=== PATIENT | male | born 1960 | race Hispanic/Latino ===

== ENCOUNTER 2018-05-05 16:32 | Inpatient (IN) | payer MEDICAID ==
[2018-05-05 16:49] VITALS: BMI 23.7
--- NOTE | 2018-05-05 17:10 | ED PDOC ---
Arrival/HPI - General Time Seen by Provider: 05/05/18 16:49 Historian: Patient - History of Present Illness Narrative History of Present Illness (Text): 05/05/18 17:09 58 y/o male, no pmh, nkda, presents to the Emergency Department complaining of depression for half a year and suicidal thoughts for past few days. Patient informs chronic alcohol abuse but reports he stopped drinking for the past 1 month which he is not having any signs of tremors or withdrawals. Patient states he has worsening depression to the point of developing suicidal thoughts prompting him to present to the Emergency Department for evaluation. Patient denies any homicidal ideation. Patient denies any fever, chills, nausea, vomiting, chest pain, shortness of breath, auditory or visual hallucinations or any other complaints. Time/Duration: < week Symptom Onset: Gradual Symptom Course: Unchanged Activities at Onset: Light Context: Home Past Medical History - Provider Review Nursing Documentation Reviewed: Yes - Infectious Disease Hx of Infectious Diseases: None - Cardiac Hx Cardiac Disorders: Yes Hx Hypertension: Yes - Pulmonary Hx Respiratory Disorders: No - Neurological Hx Neurological Disorder: No - HEENT Hx HEENT Disorder: No - Renal Hx Renal Disorder: No - Endocrine/Metabolic Hx Endocrine Disorders: No - Hematological/Oncological Hx Blood Disorders: No - Integumentary Hx Dermatological Disorder: No - Musculoskeletal/Rheumatological Hx Musculoskeletal Disorders: No - Gastrointestinal Hx Gastrointestinal Disorders: No - Genitourinary/Gynecological Hx Genitourinary Disorders: No - Psychiatric Hx Psychophysiologic Disorder: Yes Hx Depression: Yes Hx Substance Use: No Family/Social History - Physician Review Nursing Documentation Reviewed: Yes Family/Social History: No Known Family HX Smoking Status: Never Smoked Hx Alcohol Use: No (Last drink 46 days ago) Hx Substance Use: No Allergies/Home Meds Allergies/Adverse Reactions: Allergies No Known Allergies Allergy (Verified 05/05/18 22:15) Home Medications: Home Meds Medication Instructions Recorded Confirmed Unobtainable 05/05/18 05/05/18 Review of Systems - Physician Review All systems were reviewed & negative as marked: Yes - Review of Systems Constitutional: absent: Fevers Eyes: absent: Vision Changes Respiratory: absent: SOB Cardiovascular: absent: Chest Pain Gastrointestinal: absent: Nausea, Vomiting Musculoskeletal: absent: Arthralgias, Back Pain Skin: absent: Rash, Pruritis Neurological: absent: Headache, Dizziness Psychiatric: Depression, Suicidal Ideation Physical Exam Vital Signs Reviewed: Yes Vital Signs Temp Pulse Resp BP Pulse Ox 05/05/18 16:49 98.0 F 75 17 106/77 97 Temperature: Afebrile Blood Pressure: Normal Pulse: Regular Respiratory Rate: Normal Appearance: Positive for: Well-Appearing, Non-Toxic, Comfortable Pain Distress: None Mental Status: Positive for: Alert and Oriented X 3 - Systems Exam Head: Present: Atraumatic, Normocephalic Pupils: Present: PERRL Extroacular Muscles: Present: EOMI Conjunctiva: Present: Normal Mouth: Present: Moist Mucous Membranes Neck: Present: Normal Range of Motion Respiratory/Chest: Present: Clear to Auscultation, Good Air Exchange. No: Respiratory Distress, Accessory Muscle Use Cardiovascular: Present: Regular Rate and Rhythm, Normal S1, S2. No: Murmurs Abdomen: No: Tenderness, Distention, Peritoneal Signs Back: Present: Normal Inspection Upper Extremity: Present: Normal Inspection. No: Cyanosis, Edema Lower Extremity: Present: Normal Inspection. No: Edema Neurological: Present: GCS=15, CN II-XII Intact, Speech Normal Skin: Present: Warm, Dry, Normal Color. No: Rashes Psychiatric: Present: Alert, Oriented x 3, Depressed Mood, Suicidal Ideation. No: Homicidal Ideation Medical Decision Making ED Course and Treatment: 05/05/18 17:09 -labs/ua/uds -ekg -cxr -PES notified 05/05/18 18:11 -EKG: NSR @ 68 BPM, no ST elevation or depression, no T wave inversion. -Chest xray No active pulmonary disease. -Labs show no acute findings except BUN 29 and creatine 1.6 (IVF ordered), Mg 1.6 (mg 1gm ordered), wbc 11.2 (afebrile, likely stress and dehydration induced) -UA show no UTI -UDS show no acute findings -Pt. is medically clear and stable at this time for PES evaluation. 05/05/18 19:39 -Pt. evaluated by the PES Brian, discussed with the psychiatrist Dr. Michelle Doyle. , recommend to admit the patient to psychiatric floor, Dr. Barclay off from the shift and would admit for him. - Lab Interpretations Lab Results: 05/05/18 17:12 05/05/18 17:12 Lab Results 05/05/18 17:12: WBC 11.2 H, RBC 4.23, Hgb 13.5 L, Hct 39.6 L, MCV 93.6, MCH 31.9 , MCHC 34.1, RDW 12.9, Plt Count 262, MPV 9.7, Gran % 77.5 H, Lymph % (Auto) 12.3 L, Phelps % (Auto) 8.6 H, Eos % (Auto) 1.4 L, Baso % (Auto) 0.2, Gran # 8.65 H, Lymph # (Auto) 1.4, Phelps # (Auto) 1.0 H, Eos # (Auto) 0.2, Baso # (Auto) 0.02 05/05/18 17:12: Alcohol, Quantitative < 10 05/05/18 17:12: Salicylates < 1 L, Acetaminophen < 10.0 L 05/05/18 17:12: Sodium 141, Potassium 4.7, Chloride 101, Carbon Dioxide 25, Anion Gap 19, BUN 29 H, Creatinine 1.6 H, Est GFR ( Amer) 54, Est GFR ( Non-Af Amer) 44, Random Glucose 107, Calcium 9.8, Magnesium 1.6 L, Total Bilirubin 0.4, AST 24, ALT 27, Alkaline Phosphatase 71, Total Protein 8.4 H, Albumin 4.9 H, Globulin 3.6, Albumin/Globulin Ratio 1.4 - RAD Interpretation Radiology Orders: 05/05/18 17:11 CHEST PORTABLE [RAD] Stat HISTORY: medical clearance COMPARISON: No prior. FINDINGS: LUNGS: The lungs are well inflated and clear. PLEURA: No significant pleural effusion identified, no pneumothorax apparent. CARDIOVASCULAR: Normal. OSSEOUS STRUCTURES: No significant abnormalities. VISUALIZED UPPER ABDOMEN: Normal. OTHER FINDINGS: None. IMPRESSION: No active pulmonary disease. Gin Feeder: Radiologist - EKG Interpretation EKG Interpretation (Text): 05/05/18 17:57 NSR @ 68 BPM, no ST elevation or depression, no T wave inversion. Interpreted by ED Physician: Yes Type: 12 lead EKG - Medication Orders Current Medication Orders: Al Hydrox/Mg Hydrox/Simethicone (Maalox Plus 30 Ml) 30 ml PO DAILY PRN PRN Reason: Upset Stomach Bupropion HCl (Wellbutrin) 75 mg PO DAILY [facility] Last Admin: 05/08/18 09:08 Dose: 75 mg Folic Acid (Folic Acid) 1 mg PO DAILY [facility] Last Admin: 05/08/18 09:08 Dose: 1 mg Ibuprofen (Motrin Tab) 400 mg PO Q6H PRN PRN Reason: Pain, moderate (4-7) Last Admin: 05/07/18 21:30 Dose: 400 mg MAR Pain/Vitals Document 05/07/18 21:30 KMK (Rec: 05/07/18 21:31 KMK [id number]) Pain Reassessment Is This A Pain ReAssessment? No Sleep Is patient sleeping during reassessment? No Presence of Pain Presence of Pain Yes Pain Scale Used Pain Scale Used Numeric Location Pain Location Body Site Neck Description Intermittent Pressure Intensity 10 Scale Used Numeric Re-Assess: MAR Pain/Vitals Document 05/07/18 22:30 KMK (Rec: 05/08/18 04:49 KMK [id number]) Pain Reassessment Is This A Pain ReAssessment? Yes Sleep Is patient sleeping during reassessment? Yes Lorazepam (Ativan) 2 mg PO Q6H PRN; Protocol PRN Reason: anxiety/agitation Lorazepam (Ativan) 2 mg IM Q6 PRN; Protocol PRN Reason: Agitation Magnesium Hydroxide (Milk Of Magnesia) 30 ml PO DAILY PRN PRN Reason: Constipation Multivitamins/Minerals (Therapeutic-M Tab) 1 tab PO DAILY [facility] Last Admin: 05/08/18 09:08 Dose: 1 tab Thiamine HCl (Vitamin B1 Tab) 100 mg PO DAILY [facility] Last Admin: 05/08/18 09:08 Dose: 100 mg Trazodone HCl (Desyrel) 50 mg PO HS PRN PRN Reason: Insomnia Last Admin: 05/07/18 21:29 Dose: 50 mg Ziprasidone (Geodon Cap) 20 mg PO Q6H PRN; Protocol PRN Reason: psychosis/agitation Ziprasidone (Geodon Inj) 20 mg IM Q6H PRN; Protocol PRN Reason: severe agitaiton/psychosis Discontinued Medications Sodium Chloride (Sodium Chloride 0.9%) 1,000 mls @ 999 mls/hr IV .Q1H1M STA Stop: 05/05/18 19:14 Last Admin: 05/05/18 18:34 Dose: 999 mls/hr eMAR Start Stop Document 05/05/18 18:34 SZA (Rec: 05/05/18 18:35 SZA [id number]) Intravenous Solution Start Date 05/05/18 Start Time 18:35 End Date 05/05/18 End time 19:35 Total Infusion Time 60 Magnesium Sulfate/Dextrose (Magnesium Sulfate 1 Gm/100 Ml D5w) 1 gm in 100 mls @ 100 mls/hr IVPB ONCE ONE Stop: 05/05/18 19:14 Last Admin: 05/05/18 18:34 Dose: 100 mls/hr eMAR Start Stop Document 05/05/18 18:34 SZBrendon (Rec: 05/05/18 18:34 SZA [id number]) Intravenous Solution Start Date 05/05/18 Start Time 18:34 End Date 05/05/18 End time 19:34 Total Infusion Time 60 Ibuprofen (Motrin Tab) 600 mg PO ONCE ONE Stop: 05/05/18 22:34 Last Admin: 05/05/18 22:40 Dose: 600 mg [facility] Pain/Vitals Document 05/05/18 22:40 KM (Rec: 05/05/18 22:41 KM [id number]) Presence of Pain Presence of Pain Yes Pain Scale Used Pain Scale Used Numeric Location Left, Right or Bilateral Bilateral Pain Location Body Site Knee Description Chronic Intensity 5 Scale Used Numeric Pain Behavior Rubbing Site Alleviating Factors Inactivity Re-Assess: [facility] Pain/Vitals Document 05/05/18 23:40 KM (Rec: 05/06/18 00:04 KM [id number]) Pain Reassessment Is This A Pain ReAssessment? Yes Sleep Is patient sleeping during reassessment? Yes Location Left, Right or Bilateral Bilateral Pain Location Body Site Knee - PA / AERONAUTICAL DESIGN ENGINEER / Resident Statement MD/DO has reviewed & agrees with the documentation as recorded. - Scribe Statement The provider has reviewed the documentation as recorded by the Scribe Kofi Centeno. All medical record entries made by the Josephibgauri were at my direction and personally dictated by me. I have reviewed the chart and agree that the record accurately reflects my personal performance of the history, physical exam, medical decision making, and the department course for this patient. I have also personally directed, reviewed, and agree with the discharge instructions and disposition. Disposition/Present on Arrival - Present on Arrival Any Indicators Present on Arrival: No History of DVT/PE: No History of Uncontrolled Diabetes: No Urinary Catheter: No History of Decub. Ulcer: No History Surgical Site Infection Following: None - Disposition Have Diagnosis and Disposition been Completed?: Yes Diagnosis: Dehydration, Hypomagnesemia, Major depression, Suicidal ideation Disposition: HOSPITALIZED Disposition Time: 19:40 Patient Plan: Admission Patient Problems: Current Active Problems Problem Status Onset Dehydration Acute Hypomagnesemia Acute Major depression Acute Suicidal ideation Acute Alcohol use disorder, severe, in early remission, in controlled environment Acute Condition: GOOD
--- NOTE | 2018-05-05 17:30 | RAD ---
Date of service: 05/05/2018 HISTORY: medical clearance COMPARISON: No prior. FINDINGS: LUNGS: The lungs are well inflated and clear. PLEURA: No significant pleural effusion identified, no pneumothorax apparent. CARDIOVASCULAR: Normal. OSSEOUS STRUCTURES: No significant abnormalities. VISUALIZED UPPER ABDOMEN: Normal. OTHER FINDINGS: None. IMPRESSION: No active pulmonary disease.
[2018-05-05 17:58] LABS: BASO # 0.02 K/mm3 (0.0-2.0); BASO % 0.2 % (0.0-3.0); EOS # 0.2 (0.0-0.7); EOS % 1.4 % (1.5-5.0); GRAN # 8.65 (1.4-6.5); GRAN % 77.5 % (50.0-68.0); HEMOGLOBIN 13.5 g/dL (14.0-18.0); LYMPH # 1.4 (1.2-3.4); LYMPH % 12.3 % (22.0-35.0); MEAN CELL VOLUME 93.6 fl (80.0-105.0); MEAN CORPUSCULAR HEMOGLOBIN 31.9 pg (25.0-35.0); MEAN CORPUSCULAR HGB CONC 34.1 g/dl (31.0-37.0); MEAN PLATELET VOLUME 9.7 fl (7.0-11.0); MONO % 8.6 % (1.0-6.0); RBC 4.23 10^6/uL (3.5-6.1); RED CELL DISTRIBUTION WIDTH 12.9 % (11.5-14.5); WHITE BLOOD COUNT 11.2 10^3/ul (4.5-11.0)
[2018-05-05 18:03] LABS: ACETAMINOPHEN < 10.0 ug/ml (10.0-20.0); SALICYLATE < 1 mg/dL (2.0-20.0)
[2018-05-05 18:04] LABS: ALB/GLOB RATIO 1.4 (1.1-1.8); ALBUMIN 4.9 g/dL (3.0-4.8); CALCIUM 9.8 mg/dL (8.4-10.5)
[2018-05-05] MEDS ORDERED: Sodium Chloride 0.9% 1,000 ML IV STA (18:14)
[2018-05-05] MEDS ORDERED: Magnesium Sulfate 1 gm in D5W 1 GM/100 ML BAG IVPB ONE (18:15)
--- NOTE | 2018-05-05 19:32 | CARD ---
APPROVED REPORT Date of service: 05/05/2018 EKG Measurement Heart [id number] <Conclusion> Normal sinus rhythm Normal ECG
[2018-05-05 20:26] LABS: URINE BILIRUBIN NEGATIVE (NEGATIVE); URINE BLOOD NEGATIVE (NEGATIVE); URINE GLUCOSE (UA) NEGATIVE (NEGATIVE); URINE LEUKOCYTE ESTERASE NEGATIVE Leu/uL (NEGATIVE); URINE PROTEIN NEGATIVE mg/dL (<30 mg/dL); URINE UROBILINOGEN 0.2 E.U./dL (<1 E.U./dL)
[2018-05-05 20:27] LABS: URINE APPEARANCE CLEAR (CLEAR); URINE COLOR YELLOW (YELLOW)
[2018-05-05 21:03] LABS: BARBITURATES, UR NEGATIVE (NEGATIVE); BENZODIAZEPINES, UR NEGATIVE (NEGATIVE); OPIATES, UR NEGATIVE (NEGATIVE); PHENCYCLIDINE, UR NEGATIVE (NEGATIVE)
[2018-05-05 22:17] VITALS: O2SAT 99
[2018-05-05] MEDS ORDERED: Magnesium Hydroxide Susp 30 ml UD PO PRN (22:22)
[2018-05-05] MEDS ORDERED: Alum-Mag Hydrox-Simethicone Susp (30 mL) PO PRN (22:22)
--- NOTE | 2018-05-05 23:55 | PCM.BM ---
<AdriannamazinTrevandrey - Last Filed: 05/05/18 23:52> Treatment Plan Problems - Problems identified on initial assessmt Hopelessness/Helplessness Date Initiated: 05/05/18 Time Initiated: 23:53 Assessment reference: NA Status: Active Feelings of Worthlessness Date Initiated: 05/05/18 Time Initiated: 23:53 Assessment reference: NA Status: Active Ineffective Coping Date Initiated: 05/05/18 Time Initiated: 23:53 Assessment reference: NA Status: Active Treatment assets and liabiliti Patient Assests: adapts well, cooperative, self-reliant, ADL independent, good support system, negotiates basic needs, cognitively intact Patient Liabilities: live alone, financial problems, poor support system, relationship conflicts, substance abuse - Milieu Protocol Maintain good personal hygiene: daily Encourage regular showers, daily Remind patient to perform daily oral care, daily Assist patient to perform ADL's Conduct patient checks and document Observation sheet: Q15 minutes Maintain personal safety: every shift Educate patient to report safety concerns to staff, every shift Monitor environment for contraband/sharps Medication safety: Monitor for expected outcome, potential side effects: every shift, Assess barriers to learning: every shift, Assess readiness for medication education: every shift Discharge/Continuing Care - Education Needs Education Needs: Patient Medication, Patient Diagnosis/Disease Process, Patient Coping Skills, Patient Community resources, Patient Activities of Daily Living, Patient Pain, Patient Nutrition, Patient Health Practices/Safety, Patient Aftercare Safety Plan - Discharge Discharge Criteria: Tolerates medication w/o severe side effects, Free of Suicidal thoughts, Normal sleep pattern, Ability to care for self <Michelle Dover - Last Filed: 05/06/18 12:48> - Diagnosis (1) Alcohol use disorder, severe, in early remission, in controlled environment Status: Acute Interventions: 05/06/18 12:49 Maintaining sobriety Relapse prevention Possible rehabilitation Motivational interviewing 12-step programs: AA meetings (2) Major depression Status: Acute Interventions: 05/06/18 12:49 Psychoeducation Psychopharmacology/adjustment of medications as needed/ monitoring possible side effects Evaluate pt on daily basis Compliance with medications and follow up appointments Suicide and homicide risk assessment and prevention Relapse prevention Reduction of symptoms Improve functional status Family involvement As outpatient: cognitive behavioral therapy <Aliyah Magaña - Last Filed: 05/06/18 14:10> Family Contact Family involvement: Famliy/SO not involved
--- NOTE | 2018-05-06 07:21 | CP.PCM.CON ---
<ParamjitTommy Matt - Last Filed: 05/06/18 20:48> History of Present Illness - History of Present Illness History of Present Illness: Pt is a 58 yo male with a PMH of alcoholism, HTN, and osteoarthritis, who is being treated for alcoholism in the [facility] psychiatric unit for alcoholism. Pt states he has not had an alcoholic drink in the last 47 days. He denies withdrawal symptoms and states his naltrexone is working well to help control his cravings. Pt reports bilateral knee pain for which he has had many surgeries. 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 Pt states the pain sometimes wakes him up at night, but want to wait as long as he possibly can before having surgical intervention, as to allow for the most advancement of the surgical techniques/ technology. Pt states that it often feels like his knees are rubbing "bone on bone". Pt states that he takes about 6 alleve at home to help with the pain. A 12 point ROS was obtained and added to the HPI where appropriate. PMH: osteoarthritis, HTN, alcoholism PSH: meniscal tear repairs Home meds: lexapro, lisinopril, naltrexone SH: quit drinking about 1.5 months ago, denies drug use Allergies: NKDA Past Patient History - Infectious Disease Hx of Infectious Diseases: None - Past Social History Smoking Status: Never Smoked - CARDIAC Hx Cardiac Disorders: Yes Hx Hypertension: Yes - PULMONARY Hx Respiratory Disorders: No - NEUROLOGICAL Hx Neurological Disorder: No - HEENT Hx HEENT Problems: No - RENAL Hx Chronic Kidney Disease: No - ENDOCRINE/METABOLIC Hx Endocrine Disorders: No - HEMATOLOGICAL/ONCOLOGICAL Hx Blood Disorders: No - INTEGUMENTARY Hx Dermatological Problems: No - MUSCULOSKELETAL/RHEUMATOLOGICAL Hx Musculoskeletal Disorders: No - GASTROINTESTINAL Hx Gastrointestinal Disorders: No - GENITOURINARY/GYNECOLOGICAL Hx Genitourinary Disorders: No - PSYCHIATRIC Hx Depression: Yes Hx Emotional Abuse: No Hx Physical Abuse: No Hx Sexual Abuse: No Hx Substance Use: Yes - SURGICAL HISTORY Hx Surgeries: Yes Hx Musculoskeletal Surgery: Yes (Multiple knee surgeries) Meds Allergies/Adverse Reactions: Allergies Allergy/AdvReac Type Severity Reaction Status Date / Time No Known Allergies Allergy Verified 05/05/18 22:15 - Medications Medications: Current Medications Al Hydrox/Mg Hydrox/Simethicone (Maalox Plus 30 Ml) 30 ml PO DAILY PRN PRN Reason: Upset Stomach Magnesium Hydroxide (Milk Of Magnesia) 30 ml PO DAILY PRN PRN Reason: Constipation Physical Exam - Constitutional Appears: No Acute Distress - Head Exam Head Exam: ATRAUMATIC, NORMOCEPHALIC - Eye Exam Eye Exam: EOMI - ENT Exam ENT Exam: Mucous Membranes Moist - Respiratory Exam Respiratory Exam: Clear to Auscultation Bilateral, NORMAL BREATHING PATTERN. absent: Wheezes - Cardiovascular Exam Cardiovascular Exam: REGULAR RHYTHM, RRR. absent: Diastolic murmur - GI/Abdominal Exam GI & Abdominal Exam: Normal Bowel Sounds, Soft. absent: Tenderness - Extremities Exam Extremities exam: Positive for: full ROM. Negative for: calf tenderness Additional comments: pt reports pain to palpation of BL LE - Back Exam Back exam: FULL ROM. absent: CVA tenderness (L), CVA tenderness (R) - Neurological Exam Neurological exam: Alert, Oriented x3 - Skin Skin Exam: Dry, Intact, Normal Color Results - Vital Signs Recent Vital Signs: Last Vital Signs Temp 98.1 F 05/06/18 07:09 Pulse 52 L 05/06/18 07:09 Resp 20 05/06/18 07:09 BP 100/67 05/06/18 07:09 Pulse Ox 99 05/05/18 21:20 - Labs Result Diagrams: 05/05/18 17:12 05/06/18 07:15 Labs: Laboratory Results - last 24 hr 05/05/18 05/05/18 19:40 19:54 Urine Color Yellow Urine Appearance Clear Urine pH 6.0 Ur Specific Spring 1.025 Urine Protein Negative Urine Glucose (UA) Negative Urine Ketones Trace H Urine Blood Negative Urine Nitrate Negative Urine Bilirubin Negative Urine Urobilinogen 0.2 Ur Leukocyte Esterase Negative Urine Opiates Screen Negative Urine Methadone Screen Negative Ur Barbiturates Screen Negative Ur Phencyclidine Scrn Negative Ur Amphetamines Screen Negative U Benzodiazepines Scrn Negative U Oth Cocaine Metabols Negative U Cannabinoids Screen Negative Assessment & Plan - Assessment and Plan (Free Text) Assessment: Pt is a 58 yo male with a PMH of alcoholism, HTN, and osteoarthritis, who is being treated for alcoholism in the [facility] psychiatric unit for alcoholism, is also complaining of BL knee pain. Plan: Knee pain - chronic knee pain with multiple surgeries - likely osteoarthritis, no acute intervention is indicated - pt advised to follow up as out pt for intervention in the future HTN - pt takes lisinopril at home - pt is normotensive now in the hospital without taking any medications, continue to monitor - consider restarting anti-hypertensive if BP elevates Alcoholism - continue current management with psychiatrist No further medical intervention is indicated at this time, medicine to sign off. Pt seen, examined, assessment/ plan discussed with Dr Anthony. Tommy Yusuf PGY1, Internal Medicine Resident - Date & Time Date: 05/06/18 Time: 05:00 <Arturo Anthony - Last Filed: 05/08/18 15:28> Meds - Medications Medications: Current Medications Al Hydrox/Mg Hydrox/Simethicone (Maalox Plus 30 Ml) 30 ml PO DAILY PRN PRN Reason: Upset Stomach Bupropion HCl (Wellbutrin) 75 mg PO DAILY [facility] Last Admin: 05/08/18 09:08 Dose: 75 mg Folic Acid (Folic Acid) 1 mg PO DAILY [facility] Last Admin: 05/08/18 09:08 Dose: 1 mg Ibuprofen (Motrin Tab) 400 mg PO Q6H PRN PRN Reason: Pain, moderate (4-7) Last Admin: 05/07/18 21:30 Dose: 400 mg Lorazepam (Ativan) 2 mg PO Q6H PRN; Protocol PRN Reason: anxiety/agitation Lorazepam (Ativan) 2 mg IM Q6 PRN; Protocol PRN Reason: Agitation Magnesium Hydroxide (Milk Of Magnesia) 30 ml PO DAILY PRN PRN Reason: Constipation Multivitamins/Minerals (Therapeutic-M Tab) 1 tab PO DAILY [facility] Last Admin: 05/08/18 09:08 Dose: 1 tab Thiamine HCl (Vitamin B1 Tab) 100 mg PO DAILY [facility] Last Admin: 05/08/18 09:08 Dose: 100 mg Trazodone HCl (Desyrel) 50 mg PO HS PRN PRN Reason: Insomnia Last Admin: 05/07/18 21:29 Dose: 50 mg Ziprasidone (Geodon Cap) 20 mg PO Q6H PRN; Protocol PRN Reason: psychosis/agitation Ziprasidone (Geodon Inj) 20 mg IM Q6H PRN; Protocol PRN Reason: severe agitaiton/psychosis Results - Vital Signs Recent Vital Signs: Last Vital Signs Temp 98.3 F 05/08/18 07:31 Pulse 60 05/08/18 07:31 Resp 20 05/08/18 07:31 BP 112/71 05/08/18 07:31 Pulse Ox 99 05/05/18 21:20 - Labs Result Diagrams: 05/05/18 17:12 05/06/18 07:15 Attending/Attestation - Attestation I have personally seen and examined this patient.: Yes I have fully participated in the care of the patient.: Yes I have reviewed all pertinent clinical information: Yes Notes (Text): 05/08/18 15:28 Medical record note made by the resident after discussion with my direction and input after the patient was personally seen and examined by me. I have reviewed the chart and agree that the record accurately reflects by personal performance of the history, physical exam, data review, and medical decision-making, in the course for the patient. I have also personally directed the plan of care.
[2018-05-06 07:51] LABS: GLUCOSE,FASTING 86 mg/dL (65-110); HDL CHOLESTEROL 33 mg/dL (29-60)
[2018-05-06 08:02] LABS: LDL CHOLESTEROL 96 mg/dL (0-129)
[2018-05-06] MEDS: Multivitamin With Minerals Tab PO SCH (09:04)
[2018-05-06 10:56] LABS: BLOOD UREA NITROGEN 30 mg/dL (7-21); CALCIUM 9.2 mg/dL (8.4-10.5); GFR NON-AFRICAN AMERICAN > 60
--- NOTE | 2018-05-06 12:48 | PCM.PSYCH ---
Initial Psychiatric Evaluation - Initial Psychiatric Evaluation Type of Admission: Voluntary Legal Status: Capacity (patient has capacity to sign cconsent for treatment) Chief Complaint (in patient's own words): "I lost everything..." Patient's Reaction to Hospitalization: pt was brought in by real estate officer for a psych evaluation [place] go to [place], [place], pt was offered to go to [facility], pt refused, choose to come to [facility] for further evaluation. History of Present Illness and Precipitating Events: shortly pt is a 58 y/o Male with self reported h/o depression, two previous psychiatric admissions, one previous suicidal attempt, pt was recently discharged from the [facility] psychiatric unit on 05/05/18, pt also has h/o alcohol use disorder, reported to be sober for the past 45 days, h/o inpatient rehabs and detoxes, most recent was in [facility] about 10days ago, pt walked out of there, pt has no support in the community, pt is homeless, has no job, pt has 14yo daughter and ex who are not involved into his care. pt was brought in by the real estate officer for a psych evaluation [place] go to [place], [place]. in the ED pt reported he had no where to go so [place] decide [place] home town. Pt was admitted to [facility] from 05/01/18-05/05/18 for depression and suicidal ideation. pt requires further evaluation and stabilization and observation, pt needs high level of care, psychiatric admission. pt was seen at the treatment team meeting today, presented with good personal hygiene, good ADLs, seems to be grandiose, entitled, pt was splitting the staff was saying that [facility] did not take care of his main issues such as homelessness and rehabilitation arrangement, pt said that he was dissatisfied with services, pt also refused to go to the [facility], choose [place], was selective. Pt also was dissatisfied with [facility] "they paid us only 1$ a day, I know that we had roof over our head and meal three times a day, but I deserved better". pt said that due to alcoholism he lost his house, pt was "lost in my life", pt said he is sober for the past 45 days, and he has no cravings as of now. pt described his mood as "lost", hopelessness and helplessness, suicidal ideation was yesterday, pt contracted for safety now. pt denied any voices, denied paranoia, pt does not look to be psychotic. pt denied h/o abuse, denied any anxiety symptoms. pt denied use of any drugs, denied smoking. medical h/o: HTN, withdrawal seizures and knee surgeries Past psych h/o: pt was dx with MDD, one previous suicidal attempt 2 years ago by overdosing on prescription sleeping pills and cough syrup. PT reports he was hospitalized in [facility] on the medical unit. Pt reports 2 psychiatric admissions at [facility] and one at [facility] and [place] for detox. pt was d/c from [facility] on the following meds:Escitalopram [ Lexapro] 10 mg PO DAILY Gabapentin [Neurontin] 100 mg PO BID pt found meds to "do nothing" PT denies any familial hx of mental illness. Pt reports having no income. 05/05/18 17:12 05/06/18 07:15 Lab Results 05/06/18 07:15: Sodium 138, Potassium 4.8, Chloride 104, Carbon Dioxide 24, Anion Gap 15, BUN 30 H, Creatinine 1.2, Est GFR ( Amer) > 60, Est GFR ( Non-Af Amer) > 60, Random Glucose 87, Calcium 9.2 05/06/18 07:15: Fasting Glucose 86, Triglycerides 114, Cholesterol 163, LDL Cholesterol Direct 96, HDL Cholesterol 33 05/06/18 07:15: TSH 3rd Generation 1.61 05/05/18 19:54: Urine Color Yellow, Urine Appearance Clear, Urine pH 6.0, Ur Specific [place] 1.025, Urine Protein Negative, Urine Glucose (UA) Negative, Urine Ketones Trace H, Urine Blood Negative, Urine Nitrate Negative, Urine Bilirubin Negative, Urine Urobilinogen 0.2, Ur Leukocyte Esterase Negative 05/05/18 19:40: Urine Opiates Screen Negative, Urine Methadone Screen Negative, Ur Barbiturates Screen Negative, Ur Phencyclidine Scrn Negative, Ur Amphetamines Screen Negative, U Benzodiazepines Scrn Negative, U Oth Cocaine Metabols Negative, U Cannabinoids Screen Negative 05/05/18 17:12: WBC 11.2 H, RBC 4.23, Hgb 13.5 L, Hct 39.6 L, MCV 93.6, MCH 31.9 , MCHC 34.1, RDW 12.9, Plt Count 262, MPV 9.7, Gran % 77.5 H, Lymph % (Auto) 12.3 L, [place] % (Auto) 8.6 H, Eos % (Auto) 1.4 L, Baso % (Auto) 0.2, Gran # 8.65 H, Lymph # (Auto) 1.4, [place] # (Auto) 1.0 H, Eos # (Auto) 0.2, Baso # (Auto) 0.02 05/05/18 17:12: Alcohol, Quantitative < 10 05/05/18 17:12: Salicylates < 1 L, Acetaminophen < 10.0 L 05/05/18 17:12: Sodium 141, Potassium 4.7, Chloride 101, Carbon Dioxide 25, Anion Gap 19, BUN 29 H, Creatinine 1.6 H, Est GFR ( Amer) 54, Est GFR ( Non-Af Amer) 44, Random Glucose 107, Calcium 9.8, Magnesium 1.6 L, Total Bilirubin 0.4, AST 24, ALT 27, Alkaline Phosphatase 71, Total Protein 8.4 H, Albumin 4.9 H, Globulin 3.6, Albumin/Globulin Ratio 1.4 Vital Signs Temp Pulse Resp BP Pulse Ox 05/06/18 07:09 98.1 F 52 L 20 100/67 05/05/18 21:20 98 F 62 20 127/84 99 05/05/18 21:03 98.0 F 85 18 108/82 97 05/05/18 16:49 98.0 F 75 17 106/77 97 Current Medications: Active Medications Generic Name Dose Route Start Last Admin Trade Name Freq PRN Reason Stop Dose Admin Al Hydrox/Mg Hydrox/Simethicone 30 ml 05/05/18 22:22 Maalox Plus 30 Ml PO DAILY PRN Upset Stomach Magnesium Hydroxide 30 ml 05/05/18 22:22 Milk Of Magnesia PO DAILY PRN Constipation see HPI Past Psychiatric History - Past Psychiatric History Previous Treatment History: Inpatient Prior Professional Help: see HPI Prior Psychiatric Treatment: see HPI At what hospital: see HPI Duration: see HPI Nature of Treatment: see HPI Explanation of prior treatment: see HPI History of Abuse: see HPI History of ETOH/Drug Use: see HPI History of Family Illness: see HPI Pertinent Medical Hx (Current Medical&Sleep Prob, Allergies): Allergies Allergy/AdvReac Type Severity Reaction Status Date / Time No Known Allergies Allergy Verified 05/05/18 22:15 Unobtainable 05/05/18 see HPI Review of Systems - Review of Systems Systems not reviewed;Unavailable: Acuity of Condition - EENT Eyes: As Per HPI Ears: As Per HPI Nose/Mouth/Throat: As Per HPI - Cardiovascular Cardiovascular: As Per HPI - Respiratory Respiratory: As Per HPI - Gastrointestinal Gastrointestinal: As Per HPI - Genitourinary Genitourinary: As Per HPI - Reproductive: Male Reproductive:Male: As Per HPI - Musculoskeletal Musculoskeletal: As Par HPI - Integumentary Integumentary: As Per HPI - Neurological Neurological: As Per HPI - Psychiatric Psychiatric: As Per HPI - Endocrine Endocrine: As Per HPI - Hematologic/Lymphatic Hematologic: As Per HPI Mental Status Examination - Personal Presentation Personal Presentation: Looks stated age - Affect Affect: Constricted (but was smiling being sorcastic) - Motor Activity Motor Activity: Calm - Reliability in Providing Information Reliability in Providing Information: Fair - Speech Speech: Tangential (and overinclusive) - Mood Mood: Depressed - Formal Thought Process Formal Thought Process: No Impairment - Obsessions/Compulsions Obsessions: None Compulsions: None - Cognitive Functions Orientation: Person, Place, Situation, Time Sensorium: Alert Attention/Concentration: Easily distracted Estimate of Intelligence: Average Judgement: Intact, as evidence by: Insight regarding need for hospitalization - Risk Risk: Self-mutilation, Diminished functioning - Strength & Assets Inventory Strength & Assets Inventory: Intelligence, Employment history, Life experience, Cooperative, Other (good physical health, no active drug use, no psychosis) - Limitations Limitations: Other (poor social support, h/o suicial attempts) DSM 5 DX - DSM 5 DSM 5 Diagnosis: r/o MDD r/o adjustment disorder alcohol use disorder in early remission - Recommended/Plan of Treatment Treatment Recommendations and Plan of Treatment: Milieu/structure/supportive therapy Medical consult will be considered, but pt was seen by ED physician SW consultation for discharge plan and social issues Med management pt was not willing to continue meds what he was d/c on from [facility] Wellbutrin 75mg po daily for depression trasodone for insomnia PRN MVI, thiamine and folate will monitor closely Follow up on labs Will monitor closely Pt was educated about risk/benefits and alternatives of medications, coping strategies (safety plan, suicide prevention), relapse prevention, importance of follow up with psychiatrist and therapist, stay away from drugs/alcohol/smoking Projected ELOS: 7days Prognosis: fair Discharge Plan and Discharge Criteria: Pt will be not depressed or manic, will be more hopeful, will be not psychotic or anxious, will be not having thoughts of harming self or others, will be tolerating medications well, will not have major side effects, will be able to function, will not pose threat to self or others. - Smoking Cessation Smoking Cessation Initiated: No Reason for not providing: denied smoking
[2018-05-07] MEDS: Multivitamin With Minerals Tab PO SCH (08:54)
--- NOTE | 2018-05-07 09:55 | PCM.PYCHPN ---
Psychiatric Progress Note - Psychiatric Progress Note Patient seen today, length of contact: 30 min Problems Identified/Issues Discussed: I reviewed assessment and recent notes. I meet with patient at bedside. He presents as fairly groomed and superficially cooperative. Patient is alert and oriented x3. Patient reports that he "feels the same". Affect is constricted and preoccupied. Thought process is coherent. He denies any wishes or SI. He also denies any perceptual disturbance Patient denies any new discomfort or pain. He is tolerating his medications and reports sleeping well. Patient has been quiet and generally keeps to himself in his room. Appetite is good and patient attends groups. There were no behavioral issues overnight. Diagnostic Results: r/o MDD r/o adjustment disorder alcohol use disorder in early remission Medication Change: No Medical Record Reviewed: Yes Mental Status Examination - Cognitive Function Orientation: Person, Place, Situation, Time - Mood Mood: Depressed - Affect Affect: Constricted (but was smiling being sorcastic) - Formal Thought Process Formal Thought Process: No Impairment - Homicidal Ideation Homicidal Ideation: No Goal/Treatment Plan - Goal/Treatment Plan Progress Toward Problem(s) and Goals/Treatment Plan: * c/w current tx and plan No new lab results thus far Vitals reviewed and noted below: Selected Entries 05/06/18 05/06/18 07:09 16:00 Temperature 98.1 F Pulse Rate 52 L 54 L Respiratory 20 Rate Blood Pressure 100/67 109/74
[2018-05-08 07:32] VITALS: RESP 20
[2018-05-08] MEDS: Multivitamin With Minerals Tab PO SCH (09:08)
--- NOTE | 2018-05-08 10:21 | PCM.PYCHPN ---
Psychiatric Progress Note - Psychiatric Progress Note Patient seen today, length of contact: 30 min Problems Identified/Issues Discussed: I reviewed recent notes and met with patient at bedside. He presents as fairly groomed and superficially cooperative. Patient is alert and oriented x3. Patient continues to report that he feels depressed, without change since admission. Affect is constricted, guarded and mildly irritable. Staff have noted that patient can be paranoid, isolative and withdrawn (though some staff have noted that he is brighter and more pleasant on the unit). Thought process remains coherent. He denies any wishes or SI. He also denies any perceptual disturbance Patient denies any new discomfort or pain. He is tolerating his medications and reports sleeping well. As noted above, patient has been quiet and generally keeps to himself in his room. Appetite is good and patient attends groups. There were no behavioral issues overnight. Diagnostic Results: r/o MDD r/o adjustment disorder alcohol use disorder in early remission Medication Change: No Medical Record Reviewed: Yes Mental Status Examination - Cognitive Function Orientation: Person, Place, Situation, Time Attention: WNL Concentration: Poor Association: WNL Fund of Knowledge: Poor - Mood Mood: Depressed (without change) - Affect Affect: Constricted (guarded) - Formal Thought Process Formal Thought Process: No Impairment - Suicidal Ideation Suicidal Ideation: No - Homicidal Ideation Homicidal Ideation: No Goal/Treatment Plan - Goal/Treatment Plan Progress Toward Problem(s) and Goals/Treatment Plan: * c/w current tx and plan No new weekend lab results Vitals reviewed and noted below: Selected Entries 05/07/18 05/07/18 08:01 09:12 Temperature 98.2 F 97.2 F L Pulse Rate 56 L Respiratory 17 Rate Blood Pressure 109/76
[2018-05-09] MEDS: Multivitamin With Minerals Tab PO SCH (09:13)
--- NOTE | 2018-05-09 16:33 | PCM.PYCHPN ---
Psychiatric Progress Note - Psychiatric Progress Note Patient seen today, length of contact: 30 min Patient Chief Complaint: "I Was not able to sleep because my roommate was snoring loudly" Problems Identified/Issues Discussed: Suicide/ homicide prevention, past psychiatric h/o, current psychiatric symptoms , medical problems, risk/benefits and alternatives of medications, medications compliance, coping strategies, substance abuse h/o, relapse prevention, importance of follow up with psychiatrist and therapist, discharge plan. Medical Problems: questionable arthritis Diagnostic Results: 05/05/18 17:12 05/06/18 07:15 Lab Results 05/06/18 07:15: Sodium 138, Potassium 4.8, Chloride 104, Carbon Dioxide 24, Anion Gap 15, BUN 30 H, Creatinine 1.2, Est GFR ( Amer) > 60, Est GFR ( Non-Af Amer) > 60, Random Glucose 87, Calcium 9.2 05/06/18 07:15: Fasting Glucose 86, Triglycerides 114, Cholesterol 163, LDL Cholesterol Direct 96, HDL Cholesterol 33 05/06/18 07:15: RPR Nonreactive 05/06/18 07:15: TSH 3rd Generation 1.61 05/05/18 19:54: Urine Color Yellow, Urine Appearance Clear, Urine pH 6.0, Ur Specific [place] 1.025, Urine Protein Negative, Urine Glucose (UA) Negative, Urine Ketones Trace H, Urine Blood Negative, Urine Nitrate Negative, Urine Bilirubin Negative, Urine Urobilinogen 0.2, Ur Leukocyte Esterase Negative 05/05/18 19:40: Urine Opiates Screen Negative, Urine Methadone Screen Negative, Ur Barbiturates Screen Negative, Ur Phencyclidine Scrn Negative, Ur Amphetamines Screen Negative, U Benzodiazepines Scrn Negative, U Oth Cocaine Metabols Negative, U Cannabinoids Screen Negative 05/05/18 17:12: WBC 11.2 H, RBC 4.23, Hgb 13.5 L, Hct 39.6 L, MCV 93.6, MCH 31.9 , MCHC 34.1, RDW 12.9, Plt Count 262, MPV 9.7, Gran % 77.5 H, Lymph % (Auto) 12.3 L, [place] % (Auto) 8.6 H, Eos % (Auto) 1.4 L, Baso % (Auto) 0.2, Gran # 8.65 H, Lymph # (Auto) 1.4, [place] # (Auto) 1.0 H, Eos # (Auto) 0.2, Baso # (Auto) 0.02 05/05/18 17:12: Alcohol, Quantitative < 10 05/05/18 17:12: Salicylates < 1 L, Acetaminophen < 10.0 L 05/05/18 17:12: Sodium 141, Potassium 4.7, Chloride 101, Carbon Dioxide 25, Anion Gap 19, BUN 29 H, Creatinine 1.6 H, Est GFR ( Amer) 54, Est GFR ( Non-Af Amer) 44, Random Glucose 107, Calcium 9.8, Magnesium 1.6 L, Total Bilirubin 0.4, AST 24, ALT 27, Alkaline Phosphatase 71, Total Protein 8.4 H, Albumin 4.9 H, Globulin 3.6, Albumin/Globulin Ratio 1.4 Vital Signs Temp Pulse Resp BP Pulse Ox 05/09/18 07:19 98.3 F 59 L 20 99/64 L 05/08/18 15:00 64 112/83 05/08/18 07:31 98.3 F 60 20 112/71 05/07/18 09:12 97.2 F L 05/07/18 08:01 98.2 F 56 L 17 109/76 05/06/18 16:00 54 L 109/74 05/06/18 07:09 98.1 F 52 L 20 100/67 05/05/18 21:20 98 F 62 20 127/84 99 05/05/18 21:03 98.0 F 85 18 108/82 97 05/05/18 16:49 98.0 F 75 17 106/77 97 DSM 5 Symptoms Update: shortly pt is a 58 y/o Male with self reported h/o depression, two previous psychiatric admissions, one previous suicidal attempt, pt was recently discharged from the [facility] psychiatric unit on 05/05/18, pt also has h/o alcohol use disorder, reported to be sober for the past 45 days, h/o inpatient rehabs and detoxes, most recent was in [facility] about 10days ago, pt walked out of there, pt has no support in the community, pt is homeless, has no job, pt has 14yo daughter and ex who are not involved into his care. pt was brought in by the real estate listing consultant for a psych evaluation [place] to [place] to go to [place], [place]. in the ED pt reported he had no where to go so [place] home town. Pt was admitted to [facility] from 05/01/18-05/05/18 for depression and suicidal ideation. pt requires further evaluation and stabilization and observation, pt needs high level of care, psychiatric admission. patient was seen and examined today at the day treatment area, patient presented with acceptable personal hygiene, affect was reactive, patient still appears to be mildly irritable and entitled. Patient complains that he is roommate was snoring and that's why he was not able to have productive sleep. cash office worker met with the patient to discuss about after care plan, patient was very appreciative. at the same time strong borderline personality traits, patient splitting staff, passive aggressive. over the weekend staff have noted that patient can be paranoid, isolative and withdrawn (though some staff have noted that he is brighter and more pleasant on the unit). Thought process remains coherent. Pt denies any wishes or SI. He also denies any perceptual disturbance Patient tolerates medications well, no side effects observed or reported, aims 0 , no EPS. Diagnostic Results: r/o MDD r/o adjustment disorder alcohol use disorder in early remission Medication Change: Yes (trazodone increased) Medical Record Reviewed: Yes Consults ordered or reviewed: medical consult appreciated Mental Status Examination - Cognitive Function Orientation: Person, Place, Situation, Time Memory: Intact Attention: Poor Concentration: WNL Association: WNL Fund of Knowledge: WNL - Mood Mood: Depressed ("I feel the same") - Affect Affect: Constricted (but was smiling being sorcastic) - Formal Thought Process Formal Thought Process: No Impairment - Suicidal Ideation Suicidal Ideation: No - Homicidal Ideation Homicidal Ideation: No Goal/Treatment Plan - Goal/Treatment Plan Need for Continued Stay: Remain at risks for inpatient hospitalization, Severe depression anxiety, Discharge may exacerbated symptoms, Failed transitioning, Severe functional impairment Progress Toward Problem(s) and Goals/Treatment Plan: Milieu/structure/supportive therapy Medical consult will be considered, but pt was seen by ED physician SW consultation for discharge plan and social issues Med management pt was not willing to continue meds what he was d/c on from [facility] Wellbutrin 75mg po daily for depression trasodone 100mg hs for insomnia PRN MVI, thiamine and folate will monitor closely Follow up on labs Will monitor closely Pt was educated about risk/benefits and alternatives of medications, coping strategies (safety plan, suicide prevention), relapse prevention, importance of follow up with psychiatrist and therapist, stay away from drugs/alcohol/smoking Estimated Date of D/C: 05/11/18
[2018-05-10] MEDS: Multivitamin With Minerals Tab PO SCH (09:16)
--- NOTE | 2018-05-10 15:20 | PCM.PYCHPN ---
Psychiatric Progress Note - Psychiatric Progress Note Patient seen today, length of contact: 30 min Patient Chief Complaint: "I want to concentrate only on one step at the time, first I want to have roof for over my had" Problems Identified/Issues Discussed: Suicide/ homicide prevention, past psychiatric h/o, current psychiatric symptoms , medical problems, risk/benefits and alternatives of medications, medications compliance, coping strategies, substance abuse h/o, relapse prevention, importance of follow up with psychiatrist and therapist, discharge plan. Medical Problems: questionable arthritis Diagnostic Results: 05/05/18 17:12 05/06/18 07:15 Lab Results 05/06/18 07:15: Sodium 138, Potassium 4.8, Chloride 104, Carbon Dioxide 24, Anion Gap 15, BUN 30 H, Creatinine 1.2, Est GFR ( Amer) > 60, Est GFR ( Non-Af Amer) > 60, Random Glucose 87, Calcium 9.2 05/06/18 07:15: Fasting Glucose 86, Triglycerides 114, Cholesterol 163, LDL Cholesterol Direct 96, HDL Cholesterol 33 05/06/18 07:15: RPR Nonreactive 05/06/18 07:15: TSH 3rd Generation 1.61 05/05/18 19:54: Urine Color Yellow, Urine Appearance Clear, Urine pH 6.0, Ur Specific [place] 1.025, Urine Protein Negative, Urine Glucose (UA) Negative, Urine Ketones Trace H, Urine Blood Negative, Urine Nitrate Negative, Urine Bilirubin Negative, Urine Urobilinogen 0.2, Ur Leukocyte Esterase Negative 05/05/18 19:40: Urine Opiates Screen Negative, Urine Methadone Screen Negative, Ur Barbiturates Screen Negative, Ur Phencyclidine Scrn Negative, Ur Amphetamines Screen Negative, U Benzodiazepines Scrn Negative, U Oth Cocaine Metabols Negative, U Cannabinoids Screen Negative 05/05/18 17:12: WBC 11.2 H, RBC 4.23, Hgb 13.5 L, Hct 39.6 L, MCV 93.6, MCH 31.9 , MCHC 34.1, RDW 12.9, Plt Count 262, MPV 9.7, Gran % 77.5 H, Lymph % (Auto) 12.3 L, [place] % (Auto) 8.6 H, Eos % (Auto) 1.4 L, Baso % (Auto) 0.2, Gran # 8.65 H, Lymph # (Auto) 1.4, [place] # (Auto) 1.0 H, Eos # (Auto) 0.2, Baso # (Auto) 0.02 05/05/18 17:12: Alcohol, Quantitative < 10 05/05/18 17:12: Salicylates < 1 L, Acetaminophen < 10.0 L 05/05/18 17:12: Sodium 141, Potassium 4.7, Chloride 101, Carbon Dioxide 25, Anion Gap 19, BUN 29 H, Creatinine 1.6 H, Est GFR ( Amer) 54, Est GFR ( Non-Af Amer) 44, Random Glucose 107, Calcium 9.8, Magnesium 1.6 L, Total Bilirubin 0.4, AST 24, ALT 27, Alkaline Phosphatase 71, Total Protein 8.4 H, Albumin 4.9 H, Globulin 3.6, Albumin/Globulin Ratio 1.4 Vital Signs Temp Pulse Resp BP Pulse Ox 05/09/18 07:19 98.3 F 59 L 20 99/64 L 05/08/18 15:00 64 112/83 05/08/18 07:31 98.3 F 60 20 112/71 05/07/18 09:12 97.2 F L 05/07/18 08:01 98.2 F 56 L 17 109/76 05/06/18 16:00 54 L 109/74 05/06/18 07:09 98.1 F 52 L 20 100/67 05/05/18 21:20 98 F 62 20 127/84 99 05/05/18 21:03 98.0 F 85 18 108/82 97 05/05/18 16:49 98.0 F 75 17 106/77 97 DSM 5 Symptoms Update: shortly pt is a 58 y/o Male with self reported h/o depression, two previous psychiatric admissions, one previous suicidal attempt, pt was recently discharged from the [facility] psychiatric unit on 05/05/18, pt also has h/o alcohol use disorder, reported to be sober for the past 45 days, h/o inpatient rehabs and detoxes, most recent was in [employer] about 10days ago, pt walked out of there, pt has no support in the community, pt is homeless, has no job, pt has 14yo daughter and ex who are not involved into his care. pt was brought in by the [facility] for a psych evaluation due to [place] go to [place], [place]. in the ED pt reported he had no where to go so [place] decide [place] home town. Pt was admitted to [facility] from 05/01/18-05/05/18 for depression and suicidal ideation. pt requires further evaluation and stabilization and observation, pt needs high level of care, psychiatric admission. patient was seen and examined today at the treatment team room, patient presented in good spirits, patient feels more optimistic about his future, sleep is improving. Pt denies any wishes or SI. He also denies any perceptual disturbance Patient tolerates medications well, no side effects observed or reported, aims 0 , no EPS. Diagnostic Results: r/o MDD r/o adjustment disorder alcohol use disorder in early remission Medication Change: No (trazodone increased yesterday) Medical Record Reviewed: Yes Mental Status Examination - Cognitive Function Orientation: Person, Place, Situation, Time Memory: Intact Attention: Poor Concentration: WNL Association: WNL Fund of Knowledge: WNL - Mood Mood: Depressed ("I feel the same") - Affect Affect: Constricted (some affective reactivity.) - Formal Thought Process Formal Thought Process: No Impairment - Suicidal Ideation Suicidal Ideation: No - Homicidal Ideation Homicidal Ideation: No Goal/Treatment Plan - Goal/Treatment Plan Need for Continued Stay: Remain at risks for inpatient hospitalization, Severe depression anxiety, Discharge may exacerbated symptoms, Failed transitioning, Severe functional impairment Progress Toward Problem(s) and Goals/Treatment Plan: Milieu/structure/supportive therapy Medical consult will be considered, but pt was seen by ED physician SW consultation for discharge plan and social issues Med management pt was not willing to continue meds what he was d/c on from [facility] Wellbutrin 75mg po daily for depression trasodone 100mg hs for insomnia PRN MVI, thiamine and folate will monitor closely Follow up on labs Will monitor closely Pt was educated about risk/benefits and alternatives of medications, coping strategies (safety plan, suicide prevention), relapse prevention, importance of follow up with psychiatrist and therapist, stay away from drugs/alcohol/smoking Estimated Date of D/C: 05/15/18
[2018-05-11] MEDS: Multivitamin With Minerals Tab PO SCH (08:04)
--- NOTE | 2018-05-11 12:12 | PCM.PYCHPN ---
Psychiatric Progress Note - Psychiatric Progress Note Patient seen today, length of contact: 30 min Patient Chief Complaint: "I feel okay" Problems Identified/Issues Discussed: Suicide/ homicide prevention, past psychiatric h/o, current psychiatric symptoms , medical problems, risk/benefits and alternatives of medications, medications compliance, coping strategies, substance abuse h/o, relapse prevention, importance of follow up with psychiatrist and therapist, discharge plan. Medical Problems: questionable arthritis Diagnostic Results: 05/05/18 17:12 05/06/18 07:15 Lab Results 05/06/18 07:15: Sodium 138, Potassium 4.8, Chloride 104, Carbon Dioxide 24, Anion Gap 15, BUN 30 H, Creatinine 1.2, Est GFR ( Amer) > 60, Est GFR ( Non-Af Amer) > 60, Random Glucose 87, Calcium 9.2 05/06/18 07:15: Fasting Glucose 86, Triglycerides 114, Cholesterol 163, LDL Cholesterol Direct 96, HDL Cholesterol 33 05/06/18 07:15: RPR Nonreactive 05/06/18 07:15: TSH 3rd Generation 1.61 05/05/18 19:54: Urine Color Yellow, Urine Appearance Clear, Urine pH 6.0, Ur Specific [place] 1.025, Urine Protein Negative, Urine Glucose (UA) Negative, Urine Ketones Trace H, Urine Blood Negative, Urine Nitrate Negative, Urine Bilirubin Negative, Urine Urobilinogen 0.2, Ur Leukocyte Esterase Negative 05/05/18 19:40: Urine Opiates Screen Negative, Urine Methadone Screen Negative, Ur Barbiturates Screen Negative, Ur Phencyclidine Scrn Negative, Ur Amphetamines Screen Negative, U Benzodiazepines Scrn Negative, U Oth Cocaine Metabols Negative, U Cannabinoids Screen Negative 05/05/18 17:12: WBC 11.2 H, RBC 4.23, Hgb 13.5 L, Hct 39.6 L, MCV 93.6, MCH 31.9 , MCHC 34.1, RDW 12.9, Plt Count 262, MPV 9.7, Gran % 77.5 H, Lymph % (Auto) 12.3 L, [place] % (Auto) 8.6 H, Eos % (Auto) 1.4 L, Baso % (Auto) 0.2, Gran # 8.65 H, Lymph # (Auto) 1.4, [place] # (Auto) 1.0 H, Eos # (Auto) 0.2, Baso # (Auto) 0.02 05/05/18 17:12: Alcohol, Quantitative < 10 05/05/18 17:12: Salicylates < 1 L, Acetaminophen < 10.0 L 05/05/18 17:12: Sodium 141, Potassium 4.7, Chloride 101, Carbon Dioxide 25, Anion Gap 19, BUN 29 H, Creatinine 1.6 H, Est GFR ( Amer) 54, Est GFR ( Non-Af Amer) 44, Random Glucose 107, Calcium 9.8, Magnesium 1.6 L, Total Bilirubin 0.4, AST 24, ALT 27, Alkaline Phosphatase 71, Total Protein 8.4 H, Albumin 4.9 H, Globulin 3.6, Albumin/Globulin Ratio 1.4 Vital Signs Temp Pulse Resp BP Pulse Ox 05/09/18 07:19 98.3 F 59 L 20 99/64 L 05/08/18 15:00 64 112/83 05/08/18 07:31 98.3 F 60 20 112/71 05/07/18 09:12 97.2 F L 05/07/18 08:01 98.2 F 56 L 17 109/76 05/06/18 16:00 54 L 109/74 05/06/18 07:09 98.1 F 52 L 20 100/67 05/05/18 21:20 98 F 62 20 127/84 99 05/05/18 21:03 98.0 F 85 18 108/82 97 05/05/18 16:49 98.0 F 75 17 106/77 97 DSM 5 Symptoms Update: shortly pt is a 58 y/o Male with self reported h/o depression, two previous psychiatric admissions, one previous suicidal attempt, pt was recently discharged from the [facility] psychiatric unit on 05/05/18, pt also has h/o alcohol use disorder, reported to be sober for the past 45 days, h/o inpatient rehabs and detoxes, most recent was in [employer] about 10days ago, pt walked out of there, pt has no support in the community, pt is homeless, has no job, pt has 14yo daughter and ex who are not involved into his care. pt was brought in by the interstate planner for a psych evaluation due to pt on the [employer] trying to hitch hike to go to [place], [place]. in the ED pt reported he had no where to go so [place] town. Pt was admitted to [facility] from 05/01/18-05/05/18 for depression and suicidal ideation. pt requires further evaluation and stabilization and observation, pt needs high level of care, psychiatric admission. patient was seen and examined today at the day treatment area, patient presented in good spirits, patient feels more optimistic about his future, sleep is improving, pt is actively participating in hid d/c planning, calling rehabs, [facility]. Pt denies any wishes or SI. He also denies any perceptual disturbance Patient tolerates medications well, no side effects observed or reported, aims 0 , no EPS. Diagnostic Results: r/o MDD r/o adjustment disorder alcohol use disorder in early remission Medication Change: No (trazodone increased yesterday) Medical Record Reviewed: Yes Mental Status Examination - Cognitive Function Orientation: Person, Place, Situation, Time Memory: Intact Attention: Poor Concentration: WNL Association: WNL Fund of Knowledge: WNL - Mood Mood: Depressed ("I feel the same") - Affect Affect: Constricted (some affective reactivity.) - Formal Thought Process Formal Thought Process: No Impairment - Suicidal Ideation Suicidal Ideation: No - Homicidal Ideation Homicidal Ideation: No Goal/Treatment Plan - Goal/Treatment Plan Need for Continued Stay: Remain at risks for inpatient hospitalization, Severe depression anxiety, Discharge may exacerbated symptoms, Failed transitioning, Severe functional impairment Progress Toward Problem(s) and Goals/Treatment Plan: Milieu/structure/supportive therapy Medical consult will be considered, but pt was seen by ED physician SW consultation for discharge plan and social issues Med management pt was not willing to continue meds what he was d/c on from [facility] Wellbutrin 75mg po daily for depression trasodone 100mg hs for insomnia PRN MVI, thiamine and folate will monitor closely Follow up on labs Will monitor closely Pt was educated about risk/benefits and alternatives of medications, coping strategies (safety plan, suicide prevention), relapse prevention, importance of follow up with psychiatrist and therapist, stay away from drugs/alcohol/smoking Estimated Date of D/C: 05/15/18
[2018-05-12] MEDS: Multivitamin With Minerals Tab PO SCH (10:12)
[2018-05-13] MEDS: Multivitamin With Minerals Tab PO SCH (08:28)
--- NOTE | 2018-05-13 09:38 | PCM.BM ---
<Ander Piper - Last Filed: 05/13/18 09:36> Treatment Plan Problems - Problems identified on initial assessmt Hopelessness/Helplessness Date Initiated: 05/05/18 Time Initiated: 23:53 Assessment reference: NA Status: Active Feelings of Worthlessness Date Initiated: 05/05/18 Time Initiated: 23:53 Assessment reference: NA Status: Active Ineffective Coping Date Initiated: 05/05/18 Time Initiated: 23:53 Assessment reference: NA Status: Active Treatment assets and liabiliti Patient Assests: adapts well, cooperative, self-reliant, ADL independent, good support system, negotiates basic needs, cognitively intact Patient Liabilities: live alone, financial problems, poor support system, relationship conflicts, substance abuse - Milieu Protocol Maintain good personal hygiene: daily Encourage regular showers, daily Remind patient to perform daily oral care, daily Assist patient to perform ADL's Conduct patient checks and document Observation sheet: Q15 minutes Maintain personal safety: every shift Educate patient to report safety concerns to staff, every shift Monitor environment for contraband/sharps Medication safety: Monitor for expected outcome, potential side effects: every shift, Assess barriers to learning: every shift, Assess readiness for medication education: every shift Milieu Narrative: * c/w current tx and plan No new lab results thus far Vitals reviewed and noted below: Selected Entries 05/06/18 05/06/18 07:09 16:00 Temperature 98.1 F Pulse Rate 52 L 54 L Respiratory 20 Rate Blood Pressure 100/67 109/74 Family Contact Family involvement: Famliy/SO not involved Discharge/Continuing Care - Education Needs Education Needs: Patient Medication, Patient Diagnosis/Disease Process, Patient Coping Skills, Patient Community resources, Patient Activities of Daily Living, Patient Pain, Patient Nutrition, Patient Health Practices/Safety, Patient Aftercare Safety Plan - Discharge Discharge Criteria: Tolerates medication w/o severe side effects, Free of Suicidal thoughts, Normal sleep pattern, Ability to care for self - Treatment Team Participation Patient/Family/SO Statement: * c/w current tx and plan No new lab results thus far Vitals reviewed and noted below: Selected Entries 05/06/18 05/06/18 07:09 16:00 Temperature 98.1 F Pulse Rate 52 L 54 L Respiratory 20 Rate Blood Pressure 100/67 109/74 Treatment Plan Review - Problem Hopelessness/Helplessness Time Initiated: 23:53 Progress toward outcomes: improved Feelings of Worthlessness Time Initiated: 23:53 Progress toward outcomes: improved Ineffective Coping Time Initiated: 23:53 Progress toward outcomes: improved - Discharge / Continuing Care Discharge to:: Other ([facility] here I come) <Michelle Dover - Last Filed: 05/13/18 12:33> - Diagnosis (1) Alcohol use disorder, severe, in early remission, in controlled environment Status: Acute Interventions: 05/13/18 12:33 denied any cravings willing to go to AA meetings willing to be refer to inpatient rehab (2) Major depression Status: Acute Interventions: 05/13/18 12:34 depression is improving denied si denied hi tolerates meds well no side effects <Aliyah Magaña - Last Filed: 05/13/18 16:31> Family Contact Family involvement: Family/SO is involved
--- NOTE | 2018-05-13 14:12 | PCM.PYCHPN ---
Psychiatric Progress Note - Psychiatric Progress Note Patient seen today, length of contact: 30 min Patient Chief Complaint: "I feel better" Problems Identified/Issues Discussed: Suicide/ homicide prevention, past psychiatric h/o, current psychiatric symptoms , medical problems, risk/benefits and alternatives of medications, medications compliance, coping strategies, substance abuse h/o, relapse prevention, importance of follow up with psychiatrist and therapist, discharge plan. Medical Problems: questionable arthritis Diagnostic Results: 05/05/18 17:12 05/06/18 07:15 Lab Results 05/06/18 07:15: Sodium 138, Potassium 4.8, Chloride 104, Carbon Dioxide 24, Anion Gap 15, BUN 30 H, Creatinine 1.2, Est GFR ( Amer) > 60, Est GFR ( Non-Af Amer) > 60, Random Glucose 87, Calcium 9.2 05/06/18 07:15: Fasting Glucose 86, Triglycerides 114, Cholesterol 163, LDL Cholesterol Direct 96, HDL Cholesterol 33 05/06/18 07:15: RPR Nonreactive 05/06/18 07:15: TSH 3rd Generation 1.61 05/05/18 19:54: Urine Color Yellow, Urine Appearance Clear, Urine pH 6.0, Ur Specific [place] 1.025, Urine Protein Negative, Urine Glucose (UA) Negative, Urine Ketones Trace H, Urine Blood Negative, Urine Nitrate Negative, Urine Bilirubin Negative, Urine Urobilinogen 0.2, Ur Leukocyte Esterase Negative 05/05/18 19:40: Urine Opiates Screen Negative, Urine Methadone Screen Negative, Ur Barbiturates Screen Negative, Ur Phencyclidine Scrn Negative, Ur Amphetamines Screen Negative, U Benzodiazepines Scrn Negative, U Oth Cocaine Metabols Negative, U Cannabinoids Screen Negative 05/05/18 17:12: WBC 11.2 H, RBC 4.23, Hgb 13.5 L, Hct 39.6 L, MCV 93.6, MCH 31.9 , MCHC 34.1, RDW 12.9, Plt Count 262, MPV 9.7, Gran % 77.5 H, Lymph % (Auto) 12.3 L, [place] % (Auto) 8.6 H, Eos % (Auto) 1.4 L, Baso % (Auto) 0.2, Gran # 8.65 H, Lymph # (Auto) 1.4, [place] # (Auto) 1.0 H, Eos # (Auto) 0.2, Baso # (Auto) 0.02 05/05/18 17:12: Alcohol, Quantitative < 10 05/05/18 17:12: Salicylates < 1 L, Acetaminophen < 10.0 L 05/05/18 17:12: Sodium 141, Potassium 4.7, Chloride 101, Carbon Dioxide 25, Anion Gap 19, BUN 29 H, Creatinine 1.6 H, Est GFR ( Amer) 54, Est GFR ( Non-Af Amer) 44, Random Glucose 107, Calcium 9.8, Magnesium 1.6 L, Total Bilirubin 0.4, AST 24, ALT 27, Alkaline Phosphatase 71, Total Protein 8.4 H, Albumin 4.9 H, Globulin 3.6, Albumin/Globulin Ratio 1.4 Vital Signs Temp Pulse Resp BP Pulse Ox 05/09/18 07:19 98.3 F 59 L 20 99/64 L 05/08/18 15:00 64 112/83 05/08/18 07:31 98.3 F 60 20 112/71 05/07/18 09:12 97.2 F L 05/07/18 08:01 98.2 F 56 L 17 109/76 05/06/18 16:00 54 L 109/74 05/06/18 07:09 98.1 F 52 L 20 100/67 05/05/18 21:20 98 F 62 20 127/84 99 05/05/18 21:03 98.0 F 85 18 108/82 97 05/05/18 16:49 98.0 F 75 17 106/77 97 Temp Pulse Resp BP Pulse Ox 98.2 F 58 L 20 103/64 99 05/13/18 06:58 05/13/18 06:58 05/13/18 06:58 05/13/18 06:58 05/05/18 21:20 DSM 5 Symptoms Update: shortly pt is a 58 y/o Male with self reported h/o depression, two previous psychiatric admissions, one previous suicidal attempt, pt was recently discharged from the [facility] psychiatric unit on 05/05/18, pt also has h/o alcohol use disorder, reported to be sober for the past 45 days, h/o inpatient rehabs and detoxes, most recent was in [employer] about 10days ago, pt walked out of there, pt has no support in the community, pt is homeless, has no job, pt has 14yo daughter and ex who are not involved into his care. pt was brought in by the real estate processor for a psych evaluation [place] go to [place], [place]. in the ED pt reported he had no where to go so [place] home town. Pt was admitted to [facility] from 05/01/18-05/05/18 for depression and suicidal ideation. pt requires further evaluation and stabilization and observation, pt needs high level of care, psychiatric admission. patient was seen and examined today at the treatment team meeting, patient presented in good spirits, patient feels more optimistic about his future, sleep is improving, pt is actively participating in hid d/c planning, calling rehabs, [facility]. preliminary discharge in on WednesdayMay 16. Pt denies any wishes or SI. He also denies any perceptual disturbance Patient tolerates medications well, no side effects observed or reported, aims 0 , no EPS. Diagnostic Results: r/o MDD r/o adjustment disorder alcohol use disorder in early remission Medication Change: No Medical Record Reviewed: Yes Consults ordered or reviewed: medical consult appreciated Mental Status Examination - Cognitive Function Orientation: Person, Place, Situation, Time Memory: Intact Attention: Poor Concentration: WNL Association: WNL Fund of Knowledge: WNL - Mood Mood: Depressed ("I feel the same") - Affect Affect: Constricted (some affective reactivity.) - Formal Thought Process Formal Thought Process: No Impairment - Suicidal Ideation Suicidal Ideation: No - Homicidal Ideation Homicidal Ideation: No Goal/Treatment Plan - Goal/Treatment Plan Need for Continued Stay: Remain at risks for inpatient hospitalization, Severe depression anxiety, Discharge may exacerbated symptoms, Failed transitioning, Severe functional impairment Progress Toward Problem(s) and Goals/Treatment Plan: Milieu/structure/supportive therapy Medical consult will be considered, but pt was seen by ED physician SW consultation for discharge plan and social issues Med management pt was not willing to continue meds what he was d/c on from [facility] Wellbutrin 75mg po daily for depression trasodone 100mg hs for insomnia PRN MVI, thiamine and folate will monitor closely Follow up on labs Will monitor closely Pt was educated about risk/benefits and alternatives of medications, coping strategies (safety plan, suicide prevention), relapse prevention, importance of follow up with psychiatrist and therapist, stay away from drugs/alcohol/smoking Estimated Date of D/C: 05/15/18
--- NOTE | 2018-05-13 19:56 | PN ---
DATE: 05/12/2018 Note, this is being dictated on 05/13/2018, but the patient was seen on 05/12/2018, but the dictation was not able to be performed due to mechanical difficulties. SUBJECTIVE: The patient is a 58-year-old male originally from [facility], who is currently homeless (for the past 6 weeks) and had been sleeping on park benches. He was admitted in a state of severe depression on 05/05/2018, but was no longer in such a severe state of depression. He indicated that he was waiting for response from group homes and was awaiting monitory support for rent. The patient was able to attribute alcohol as a reason for his current condition and he has been sober he said for nearly 60 days. He reported that he had been drinking since his late teens (ages [age]), but he felt it did not affect him until the past 3 to 5 years. 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 He grew up in [place]. He has been hospitalized 3 times and was aware that his life was "unraveling. No home, job, credit." He has been working with our marriage and family social worker for a suitable placement. He was started on naltrexone 50 mg per day. CBC and diff of 05/05/2018, and biochemical profile 05/06/2018, were reviewed. Patient is currently being maintained on trazodone 100 mg at bedtime p.r.n., Ativan p.r.n., Geodon 20 mg p.r.n. He was started on ReVia 50 mg daily to help control his alcohol use. He is also on Wellbutrin 75 mg daily. Brendan Davis MD/ PhD
[2018-05-14] MEDS: Multivitamin With Minerals Tab PO SCH (08:20)
--- NOTE | 2018-05-14 09:02 | PCM.PYCHPN ---
Psychiatric Progress Note - Psychiatric Progress Note Patient seen today, length of contact: 30 min Problems Identified/Issues Discussed: PROGRESS NOTE I reviewed recent notes and met with patient at bedside. He presents as fairly groomed and superficially cooperative. Patient is alert and oriented x3. I am familiar with patient from my interviews with him last weekend. He indicates that he is feeling better since admission. His affect is constricted, mildly disinterested and flat when he discusses his mood. Patient indicates that he feels more hopeful and denies any SI/ wishes. He is tolerating his medications and sleeping well. Denies any new discomfort or pain. Thought process remains coherent. Patient denies any new discomfort or pain. He is tolerating his medications and reports sleeping well. Patient has been more visible on the unit over the past week. Staff have noted that he is attending activities and appears brighter. Appetite is good and there were no behavioral issues overnight. P Diagnostic Results: r/o MDD r/o adjustment disorder alcohol use disorder in early remission Medication Change: No ( ) Medical Record Reviewed: Yes Mental Status Examination - Cognitive Function Orientation: Person, Place, Situation, Time Memory: Intact Attention: Poor Concentration: WNL Association: WNL Fund of Knowledge: WNL - Mood Mood: Depressed ( better) - Affect Affect: Constricted (some affective reactivity.) - Formal Thought Process Formal Thought Process: No Impairment - Suicidal Ideation Suicidal Ideation: No - Homicidal Ideation Homicidal Ideation: No Goal/Treatment Plan - Goal/Treatment Plan Need for Continued Stay: Remain at risks for inpatient hospitalization, Severe depression anxiety, Discharge may exacerbated symptoms, Failed transitioning, Severe functional impairment Progress Toward Problem(s) and Goals/Treatment Plan: * c/w current tx and plan No new lab results thus far Vitals reviewed and noted below: Selected Entries 05/13/18 05/13/18 06:58 15:39 Temperature 98.2 F Pulse Rate 58 L 70 Respiratory 20 Rate Blood Pressure 103/64 125/81 Estimated Date of D/C: 05/15/18
[2018-05-15] MEDS: Multivitamin With Minerals Tab PO SCH (08:59)
--- NOTE | 2018-05-15 10:29 | PCM.PYCHPN ---
Psychiatric Progress Note - Psychiatric Progress Note Patient seen today, length of contact: 30 min Problems Identified/Issues Discussed: PROGRESS NOTE I reviewed recent notes and met with patient at bedside. He presents as fairly groomed and superficially cooperative. Patient is alert and oriented x3. I am familiar with patient from my interviews with him last weekend. He indicates that he is feeling better since admission. His affect is constricted, mildly disinterested and flat when he discusses his mood. Patient indicates that he feels more hopeful and denies any SI/ wishes. He is tolerating his medications and sleeping well. Denies any new discomfort or pain. Thought process remains coherent. Patient denies any new discomfort or pain. He is tolerating his medications and reports sleeping well. Patient has been more visible on the unit over the past week. Staff have noted that he is attending activities and appears brighter. Appetite is good and there were no behavioral issues overnight. Of note: Last weekend patient reported that his mood symptoms had not changed at all. This weekend patient consistently informed me that mood has been improving. However recent nursing note dated 05/15/18 indicates that patient recently stated that the "medications have had zero effect on sad mood" Diagnostic Results: r/o MDD r/o adjustment disorder alcohol use disorder in early remission Medication Change: No ( ) Medical Record Reviewed: Yes Mental Status Examination - Cognitive Function Orientation: Person, Place, Situation, Time Memory: Intact Attention: WNL Concentration: WNL Association: WNL Fund of Knowledge: WNL - Mood Mood: Depressed ( better (though patient denied to nursing)) - Affect Affect: Constricted (some affective reactivity.) - Formal Thought Process Formal Thought Process: No Impairment - Suicidal Ideation Suicidal Ideation: No - Homicidal Ideation Homicidal Ideation: No Goal/Treatment Plan - Goal/Treatment Plan Need for Continued Stay: Remain at risks for inpatient hospitalization, Severe depression anxiety, Discharge may exacerbated symptoms, Failed transitioning, Severe functional impairment Progress Toward Problem(s) and Goals/Treatment Plan: * c/w current tx and plan No new weekend lab results Vitals reviewed and noted below: Selected Entries 05/15/18 07:13 Temperature 97.6 F Pulse Rate 61 Respiratory 20 Rate Blood Pressure 117/78 Estimated Date of D/C: 05/15/18
[2018-05-16 07:33] VITALS: BP 94/57; PULSE 61
[2018-05-16] MEDS: Multivitamin With Minerals Tab PO SCH (08:30)
[2018-05-16 11:38] VITALS: TEMP 97.4
--- NOTE | 2018-05-16 16:08 | PCM.PYCHDC ---
Mental Status Examination - Mental Status Examination Orientation: Person, Place, Situation, Time Memory: Intact Mood: Neutral Affect: Broad (and mood congruent) Speech: Appropriate Attention: WNL Concentration: WNL Association: WNL Fund of Knowledge: WNL Formal Thought Process: No Impairment Description of patient's judgement and insight: Pt has improved insight into mental and medical illness, pt was compliant with medications and unit rules and regulations, pt was going to groups, was calm, cooperative, socially appropriate, no behavioral incidents, no agitation, no aggression. Psychotic Thoughts and Behaviors: Pt denied v/a/t hallucinations, denied paranoid ideations, pt does not appear to be psychotic, and thought process is goal directed. Suicidal Ideation: No Current Homicidal Ideation?: No Plan: pt adamantly denied thoughts of harming self or others denied intent or plan. Discharge Summary - Discharge Note Reason for Hospitalization: pt was brought in by real estate sales supervisor for a psych evaluation [place] go to [place], [place], pt was offered to go to [facility], pt refused, choose to come to [facility] for further evaluation. Psychiatric History (includes Medical, Family, Personal Hx): see HPI Laboratory Data: 05/05/18 17:12 05/06/18 07:15 Lab Results 05/06/18 07:15: Sodium 138, Potassium 4.8, Chloride 104, Carbon Dioxide 24, Anion Gap 15, BUN 30 H, Creatinine 1.2, Est GFR ( Amer) > 60, Est GFR ( Non-Af Amer) > 60, Random Glucose 87, Calcium 9.2 05/06/18 07:15: Fasting Glucose 86, Triglycerides 114, Cholesterol 163, LDL Cholesterol Direct 96, HDL Cholesterol 33 05/06/18 07:15: RPR Nonreactive 05/06/18 07:15: TSH 3rd Generation 1.61 05/05/18 19:54: Urine Color Yellow, Urine Appearance Clear, Urine pH 6.0, Ur Specific [place] 1.025, Urine Protein Negative, Urine Glucose (UA) Negative, Urine Ketones Trace H, Urine Blood Negative, Urine Nitrate Negative, Urine Bilirubin Negative, Urine Urobilinogen 0.2, Ur Leukocyte Esterase Negative 05/05/18 19:40: Urine Opiates Screen Negative, Urine Methadone Screen Negative, Ur Barbiturates Screen Negative, Ur Phencyclidine Scrn Negative, Ur Amphetamines Screen Negative, U Benzodiazepines Scrn Negative, U Oth Cocaine Metabols Negative, U Cannabinoids Screen Negative 05/05/18 17:12: WBC 11.2 H, RBC 4.23, Hgb 13.5 L, Hct 39.6 L, MCV 93.6, MCH 31.9 , MCHC 34.1, RDW 12.9, Plt Count 262, MPV 9.7, Gran % 77.5 H, Lymph % (Auto) 12.3 L, Morgan % (Auto) 8.6 H, Eos % (Auto) 1.4 L, Baso % (Auto) 0.2, Gran # 8.65 H, Lymph # (Auto) 1.4, Morgan # (Auto) 1.0 H, Eos # (Auto) 0.2, Baso # (Auto) 0.02 05/05/18 17:12: Alcohol, Quantitative < 10 05/05/18 17:12: Salicylates < 1 L, Acetaminophen < 10.0 L 05/05/18 17:12: Sodium 141, Potassium 4.7, Chloride 101, Carbon Dioxide 25, Anion Gap 19, BUN 29 H, Creatinine 1.6 H, Est GFR ( Amer) 54, Est GFR ( Non-Af Amer) 44, Random Glucose 107, Calcium 9.8, Magnesium 1.6 L, Total Bilirubin 0.4, AST 24, ALT 27, Alkaline Phosphatase 71, Total Protein 8.4 H, Albumin 4.9 H, Globulin 3.6, Albumin/Globulin Ratio 1.4 Vital Signs Temp Pulse Resp BP Pulse Ox 05/16/18 09:34 97.4 F L 05/16/18 08:34 97.2 F L 05/16/18 07:31 97.7 F 61 20 94/57 L 05/16/18 07:29 72 20 114/74 05/15/18 15:00 90 20 101/70 05/15/18 07:13 97.6 F 61 20 117/78 05/14/18 16:00 66 109/72 05/14/18 07:22 98.2 F 60 20 111/73 05/13/18 15:39 70 125/81 05/13/18 06:58 98.2 F 58 L 20 103/64 05/12/18 16:00 71 118/81 05/12/18 07:25 98.1 F 69 20 87/52 L 05/11/18 16:00 64 121/76 05/11/18 07:03 98.3 F 57 L 20 95/61 L 05/10/18 16:27 63 20 118/81 05/10/18 06:56 97.6 F 62 20 96/65 L 05/09/18 16:00 58 L 130/79 05/09/18 07:19 98.3 F 59 L 20 99/64 L 05/08/18 15:00 64 112/83 05/08/18 07:31 98.3 F 60 20 112/71 05/07/18 09:12 97.2 F L 05/07/18 08:01 98.2 F 56 L 17 109/76 05/06/18 16:00 54 L 109/74 05/06/18 07:09 98.1 F 52 L 20 100/67 05/05/18 21:20 98 F 62 20 127/84 99 05/05/18 21:03 98.0 F 85 18 108/82 97 05/05/18 16:49 98.0 F 75 17 106/77 97 Consultations:: List each consultation separately and include: 1. Reason for request. 2. Findings. 3. Follow-up Consultations: medical consult appreciated see notes for more detailed information Summary of Hospital Course include:: 1. Description of specific treatment plan utilized for patients during their course of treatmen. 2. Summarize the time- course for resolution of acute symptoms and/or regressed behaviors. 3. Describe issues identified and worked on during hospitalization. 4. Describe medication utilized. 5. Describe medical problems identified and treated. 6. Reassessment of suicide risk Summary of Hospital Course: shortly pt is a 58 y/o Male with self reported h/o depression, two previous psychiatric admissions, one previous suicidal attempt, pt was recently discharged from the [facility] psychiatric unit on 05/05/18, pt also has h/o alcohol use disorder, reported to be sober for the past 45 days, h/o inpatient rehabs and detoxes, most recent was in [employer] about 10days ago, pt walked out of there, pt has no support in the community, pt is homeless, has no job, pt has 14yo daughter and ex who are not involved into his care. pt was brought in by the real estate sales supervisor for a psych evaluation due to [place] to go to [place], [place]. in the ED pt reported he had no where to go so [place] decide [place] town. Pt was admitted to [facility] from 05/01/18-05/05/18 for depression and suicidal ideation. pt requires further evaluation and stabilization and observation, pt needs high level of care, psychiatric admission. initially presented with good personal hygiene, good ADLs, seems to be grandiose , entitled, pt was splitting the staff was saying that [facility] did not take care of his main issues such as homelessness and rehabilitation arrangement , pt said that he was dissatisfied with services, pt also refused to go to the [facility], choose [facility], was selective. Pt also was dissatisfied with [employer] "they paid us only 1$ a day, I know that we had roof over our head and meal three times a day, but I deserved better". pt said that due to alcoholism he lost his house, pt was "lost in my life", pt said he is sober for the past 45 days, and he has no cravings as of now. pt described his mood as "lost", hopelessness and helplessness, suicidal ideation was yesterday, pt contracted for safety now. pt denied any voices, denied paranoia, pt does not look to be psychotic. pt denied h/o abuse, denied any anxiety symptoms. pt denied use of any drugs, denied smoking. medical h/o: HTN, withdrawal seizures and knee surgeries Past psych h/o: pt was dx with MDD, one previous suicidal attempt 2 years ago by overdosing on prescription sleeping pills and cough syrup. PT reports he was hospitalized in [facility] on the medical unit. Pt reports 2 psychiatric admissions at [facility] and one at [facility] and [place] for detox. pt was d/c from [facility] on the following meds:Escitalopram [ Lexapro] 10 mg PO DAILY Gabapentin [Neurontin] 100 mg PO BID pt found meds to "do nothing" PT denies any familial hx of mental illness. Pt reports having no income. 05/05/18 17:12 05/06/18 07:15 Lab Results 05/06/18 07:15: Sodium 138, Potassium 4.8, Chloride 104, Carbon Dioxide 24, Anion Gap 15, BUN 30 H, Creatinine 1.2, Est GFR ( Amer) > 60, Est GFR ( Non-Af Amer) > 60, Random Glucose 87, Calcium 9.2 05/06/18 07:15: Fasting Glucose 86, Triglycerides 114, Cholesterol 163, LDL Cholesterol Direct 96, HDL Cholesterol 33 05/06/18 07:15: TSH 3rd Generation 1.61 05/05/18 19:54: Urine Color Yellow, Urine Appearance Clear, Urine pH 6.0, Ur Specific [place] 1.025, Urine Protein Negative, Urine Glucose (UA) Negative, Urine Ketones Trace H, Urine Blood Negative, Urine Nitrate Negative, Urine Bilirubin Negative, Urine Urobilinogen 0.2, Ur Leukocyte Esterase Negative 05/05/18 19:40: Urine Opiates Screen Negative, Urine Methadone Screen Negative, Ur Barbiturates Screen Negative, Ur Phencyclidine Scrn Negative, Ur Amphetamines Screen Negative, U Benzodiazepines Scrn Negative, U Oth Cocaine Metabols Negative, U Cannabinoids Screen Negative 05/05/18 17:12: WBC 11.2 H, RBC 4.23, Hgb 13.5 L, Hct 39.6 L, MCV 93.6, MCH 31.9 , MCHC 34.1, RDW 12.9, Plt Count 262, MPV 9.7, Gran % 77.5 H, Lymph % (Auto) 12.3 L, Morgan % (Auto) 8.6 H, Eos % (Auto) 1.4 L, Baso % (Auto) 0.2, Gran # 8.65 H, Lymph # (Auto) 1.4, Morgan # (Auto) 1.0 H, Eos # (Auto) 0.2, Baso # (Auto) 0.02 05/05/18 17:12: Alcohol, Quantitative < 10 05/05/18 17:12: Salicylates < 1 L, Acetaminophen < 10.0 L 05/05/18 17:12: Sodium 141, Potassium 4.7, Chloride 101, Carbon Dioxide 25, Anion Gap 19, BUN 29 H, Creatinine 1.6 H, Est GFR ( Amer) 54, Est GFR ( Non-Af Amer) 44, Random Glucose 107, Calcium 9.8, Magnesium 1.6 L, Total Bilirubin 0.4, AST 24, ALT 27, Alkaline Phosphatase 71, Total Protein 8.4 H, Albumin 4.9 H, Globulin 3.6, Albumin/Globulin Ratio 1.4 Vital Signs Temp Pulse Resp BP Pulse Ox 05/06/18 07:09 98.1 F 52 L 20 100/67 05/05/18 21:20 98 F 62 20 127/84 99 05/05/18 21:03 98.0 F 85 18 108/82 97 05/05/18 16:49 98.0 F 75 17 106/77 97 patient was stabilized on the following medications: Wellbutrin 75mg po daily for depression trasodone 100mg hs for insomnia PRN MVI, thiamine and folate patient tolerated medications well, no side effects observed or reported, aims 0 , no EPS. Over the course of this hospitalization pt was attending groups, pt also had medication management, had therapeutic milieu. Overall pt improved significantly, presented to be less depressed, more hopeful , more over [employer] social worker discussed discharge plan to half-way house, patient agreed with discharge plan, deemed to be ready for discharge. At the time of the discharge pt denied been depressed, denied thoughts of harming self or others, denied psychotic symptoms, and pt does not appeared to be psychotic, denied been anxious, pt is not in imminent danger to self or others, information about follow up appointment, time and address provided to the pt bby a elementary school social worker, it is patient responsibility to follow up with outpatient clinic, PMD as well as specialists (see note for more detailed information). In case pt will need to obtain results of studies pending at discharge pt was provided with contact information of Psychiatric Inpatient unit [phone] as well as Medical Record Department [phone]. Naltrexone treatment provided Counseling about alcohol cessation provided AA meetings treatment program information was provided by the pt was provided with prescriptions for all of medications (please see medication reconciliation form) Pt was educated about safety plan in case of worsening of symptoms or in case of suicidal or homicidal ideation call 911 or go to the nearest ER, also was educated to take meds as prescribed and stay away from drugs, pt verbalized understanding. - Diagnosis (1) Alcohol use disorder, severe, in early remission, in controlled environment Current Visit: Yes Status: Acute Priority: High (2) Major depression Current Visit: Yes Status: Acute Priority: Medium - Final Diagnosis (DSM 5) Condition upon Discharge: GOOD Disposition: HOME/ ROUTINE Follow-up Treatment Plan: At the time of the discharge pt denied been depressed, denied thoughts of harming self or others, denied psychotic symptoms, and pt does not appeared to be psychotic, denied been anxious, pt is not in imminent danger to self or others, information about follow up appointment, time and address provided to the pt cary a elementary school social worker, it is patient responsibility to follow up with outpatient clinic, PMD as well as specialists (see note for more detailed information). In case pt will need to obtain results of studies pending at discharge pt was provided with contact information of Psychiatric Inpatient unit [phone] as well as Medical Record Department [phone]. Naltrexone treatment provided Counseling about alcohol cessation provided meetings treatment program information was provided by the pt was provided with prescriptions for all of medications (please see medication reconciliation form) Pt was educated about safety plan in case of worsening of symptoms or in case of suicidal or homicidal ideation call 911 or go to the nearest ER, also was educated to take meds as prescribed and stay away from drugs, pt verbalized understanding. Prescriptions/Medication Reconciliation: buPROPion [Wellbutrin] 75 mg PO DAILY #30 tab Folic Acid 1 mg PO DAILY #30 tab Ibuprofen [Motrin Tab] 400 mg PO Q6H PRN #30 tab PRN Reason: Pain, fever Multimineral/Multivitamin [Therapeutic-M Tab] 1 tab PO DAILY #30 tab Naltrexone [Revia] 50 mg PO DAILY #30 tab traZODone [Desyrel] 100 mg PO HS PRN #30 tab PRN Reason: Insomnia - Smoking Cessation Smoking Cessation Medication prescribed: No Reason for not providing: denied smoking - Antipsychotic Medications Pt discharged on 2 or more routine antipsychotic medications: No
== END 2018-05-16 18:12 | disposition home or self-care (01) | DRG 426 ==
LOC: ED 16:32 → ERH 19:38 → PSYC 21:12
PROVIDERS: ADMIT Psychiatry & Neurology Psychiatry; ATTEND Psychiatry & Neurology Psychiatry
DX: F32.9 Major depressive disorder, single episode, unspecified (principal); E86.0 Dehydration; F10.21 Alcohol dependence, in remission; F60.3 Borderline personality disorder; E83.42 Hypomagnesemia; R45.851 Suicidal ideations; M17.0 Bilateral primary osteoarthritis of knee; I10 Essential (primary) hypertension; Z59.0 Homelessness